=== PATIENT | male | born 1960 | race Asian ===

== ENCOUNTER 2019-05-18 09:04 | Observation (INO) | payer BC ==
--- NOTE | 2019-05-18 09:40 | ED Physician Documentation ---
PD HPI MALE - Stated complaint Stated Complaint: MALE - Chief complaint Chief Complaint: Abd Pain - History obtained from History obtained from: Patient - History of Present Illness Timing - onset: How many days ago Associated symptoms: Dysuria, Hematuria. No: Unable to urinate Similar symptoms before: Diagnosis Recently seen: Admitted - Additional information Additional information: This is a 58-year-old man who presents with his Daughter who acts as seismic interpreter. He is seeing a lot of blood in his urine. He was just at [facility] where they did a CAT scan and ultrasound showed a bladder tumor and he is scheduled for surgery on June 01 however he had lost so much blood that they admitted him to the hospital discharged 5 days ago and he received a transfusion. His hemoglobin at discharge was 8.5. He was also given a prescription for Keflex which he has been taking but he is developed some pain with urination. He has not seen any clots. He has ringing in the right ear just like when his blood was low before and he is been feeling his heart racing just like when he needed a transfusion before. He denies shortness of breath. Has no back pain no fevers. Review of Systems Constitutional: denies: Fever Ears: reports: Tinnitus/ringing Cardiac: reports: Palpitations. denies: Chest pain / pressure Respiratory: denies: Dyspnea GI: denies: Abdominal Pain, Nausea, Vomiting : reports: Dysuria, Hematuria Musculoskeletal: denies: Back pain Neurologic: denies: Near syncope, Syncope PD PAST MEDICAL HISTORY - Allergies Allergies/Adverse Reactions: Allergies Allergy/AdvReac Type Severity Reaction Status Date / Time No Known Drug Allergies Allergy Verified 05/18/19 09:15 PD ED PE NORMAL - Vitals Vital signs reviewed: Yes - General General: Alert and oriented X 3, No acute distress, Well developed/nourished, Other (Thin 58-year-old man who is in no acute distress.) - HEENT HEENT: Atraumatic, PERRL, Moist mucous membranes - Cardiac Cardiac: RRR, Strong equal pulses, Other (He has a soft 2/6 systolic murmur heard best at the apex.) - Respiratory Respiratory: No respiratory distress, Clear bilaterally - Abdomen Abdomen: Normal bowel sounds, Soft, Non tender, Non distended, No organomegaly - Derm Derm: Normal color, Warm and dry, No rash - Neuro Neuro: Alert and oriented X 3, No motor deficit, No sensory deficit, Normal speech Results - Vitals Vitals: Vital Signs - 24 hr 05/18/19 05/18/19 05/18/19 09:15 09:27 10:43 Temperature 36.5 C 36.9 C Heart Rate 69 71 71 Respiratory 14 18 16 Rate Blood Pressure 120/69 128/75 109/66 O2 Saturation 100 100 98 05/18/19 11:50 Temperature Heart Rate 66 Respiratory 18 Rate Blood Pressure 99/67 O2 Saturation 98 Oxygen O2 Source Room air - Labs Labs: Laboratory Tests 05/18/19 05/18/19 05/18/19 09:45 09:51 09:51 WBC 6.8 RBC 2.98 L Hgb 7.4 L Hct 24.2 L MCV 81.2 MCH 24.8 L MCHC 30.6 L RDW 18.5 H Plt Count 453 H MPV 9.0 Neut # (Auto) 4.2 Lymph # (Auto) 1.3 L [place] # (Auto) 0.7 Eos # (Auto) 0.5 Baso # (Auto) 0.1 Absolute Nucleated RBC 0.00 Nucleated RBC % 0.0 PT INR APTT Sodium 143 Potassium 3.8 Chloride 109 Carbon Dioxide 27 Anion Gap 7.0 BUN 15 Creatinine 0.9 Estimated GFR (MDRD) 86 L Glucose 132 H Calcium 8.2 L Total Bilirubin 0.7 AST 18 ALT 17 Alkaline Phosphatase 45 Total Protein 5.7 L Albumin 3.3 Globulin 2.4 Albumin/Globulin Ratio 1.4 Lipase 27 Urine Color RED/BLOODY Urine Clarity CLOUDY Urine pH 6.5 Ur Specific Malcolm 1.020 Urine Protein Urine Glucose (UA) NEGATIVE Urine Ketones TRACE Urine Occult Blood Urine Nitrite Urine Bilirubin NEGATIVE Urine Urobilinogen Ur Leukocyte Esterase Urine RBC TNTC H Urine WBC 11-25 H Ur Squamous Epith Cells RARE Squamous Urine Bacteria Few Ur Microscopic Review INDICATED Urine Culture Comments INDICATED Blood Type Blood Type Recheck Antibody Screen Crossmatch IS Only 05/18/19 05/18/19 05/18/19 09:51 09:51 09:51 WBC RBC Hgb Hct MCV MCH MCHC RDW Plt Count MPV Neut # (Auto) Lymph # (Auto) [place] # (Auto) Eos # (Auto) Baso # (Auto) Absolute Nucleated RBC Nucleated RBC % PT 11.7 INR 1.0 APTT 29.9 Sodium Potassium Chloride Carbon Dioxide Anion Gap BUN Creatinine Estimated GFR (MDRD) Glucose Calcium Total Bilirubin AST ALT Alkaline Phosphatase Total Protein Albumin Globulin Albumin/Globulin Ratio Lipase Urine Color Urine Clarity Urine pH Ur Specific Malcolm Urine Protein Urine Glucose (UA) Urine Ketones Urine Occult Blood Urine Nitrite Urine Bilirubin Urine Urobilinogen Ur Leukocyte Esterase Urine RBC Urine WBC Ur Squamous Epith Cells Urine Bacteria Ur Microscopic Review Urine Culture Comments Blood Type O POSITIVE Blood Type Recheck Antibody Screen NEGATIVE Crossmatch IS Only See Detail 05/18/19 10:55 WBC RBC Hgb Hct MCV MCH MCHC RDW Plt Count MPV Neut # (Auto) Lymph # (Auto) [place] # (Auto) Eos # (Auto) Baso # (Auto) Absolute Nucleated RBC Nucleated RBC % PT INR APTT Sodium Potassium Chloride Carbon Dioxide Anion Gap BUN Creatinine Estimated GFR (MDRD) Glucose Calcium Total Bilirubin AST ALT Alkaline Phosphatase Total Protein Albumin Globulin Albumin/Globulin Ratio Lipase Urine Color Urine Clarity Urine pH Ur Specific Malcolm Urine Protein Urine Glucose (UA) Urine Ketones Urine Occult Blood Urine Nitrite Urine Bilirubin Urine Urobilinogen Ur Leukocyte Esterase Urine RBC Urine WBC Ur Squamous Epith Cells Urine Bacteria Ur Microscopic Review Urine Culture Comments Blood Type Blood Type Recheck O POSITIVE Antibody Screen Crossmatch IS Only PD MEDICAL DECISION MAKING - ED course Complexity details: reviewed results, d/w patient, d/w family ED course: I did discuss the low hemoglobin and continued bleeding with the urologist to see if they would want him in transfer so that they can do any procedure to stop the bleeding. This is already his second time that he is needed a transfusion. The urologist said that they would not do anything emergently. They are going to try and rearrange his procedure and schedule it for an earlier date than June 01. I discussed with the hospitalist and he is going admit the patient for transfusion. Departure - Departure Disposition: ED Place in Observation Clinical Impression: Hematuria Qualifiers: Hematuria type: gross Qualified Code(s): R31.0 - Gross hematuria Anemia Qualifiers: Anemia type: other cause Other causes of anemia: acute posthemorrhagic Qualified Code(s): D62 - Acute posthemorrhagic anemia Condition: Good Discharge Date/Time: 05/18/19 13:58
[2019-05-18 09:59] LABS: BASOPHILS # (AUTO) 0.1 10^3/uL (0.0-0.1); BASOPHILS % (AUTO) 0.9 %; EOSINOPHILS # (AUTO) 0.5 10^3/uL (0.0-0.7); EOSINOPHILS % (AUTO) 6.9 %; HGB - HEMOGLOBIN 7.4 g/dL (14.0-18.0); LYMPHOCYTES # (AUTO) 1.3 10^3/uL (1.5-3.5); MEAN CORPUSCULAR HEMOGLOBIN 24.8 pg (27.0-31.0); MEAN CORPUSCULAR HGB CONC 30.6 g/dL (32.0-36.0); MEAN CORPUSCULAR VOLUME 81.2 fL (80.0-94.0); MONOCYTES # (AUTO) 0.7 10^3/uL (0.0-1.0); MONOCYTES % (AUTO) 10.5 %; NEUTROPHILS # (AUTO) 4.2 10^3/uL (1.5-6.6); NEUTROPHILS % (AUTO) 62.4 %; PLT - PLATELET COUNT 453 10^3/uL (130-450); RED BLOOD COUNT 2.98 10^6/uL (4.70-6.10); RED CELL DISTRIBUTION WIDTH 18.5 % (12.0-15.0); WHITE BLOOD COUNT 6.8 x10^3/uL (4.8-10.8)
[2019-05-18 10:04] LABS: BILIRUBIN,URINE NEGATIVE (NEGATIVE); GLUCOSE, URINE (UA) NEGATIVE (NEGATIVE); KETONES,URINE (UA) TRACE mg/dL (NEGATIVE); PH,URINE 6.5 PH (5.0-7.5)
[2019-05-18 10:05] LABS: CLARITY,URINE CLOUDY (CLEAR)
[2019-05-18 10:14] LABS: ALBUMIN 3.3 g/dL (3.2-5.5); ALBUMIN/GLOBULIN RATIO 1.4 (1.0-2.2); BILIRUBIN,TOTAL 0.7 mg/dL (0.2-1.0); CALCIUM 8.2 mg/dL (8.5-10.3); CREATININE 0.9 mg/dL (0.6-1.2); TOTAL PROTEIN 5.7 g/dL (6.7-8.2)
[2019-05-18 10:19] LABS: BACTERIA,URINE Few /HPF (None Seen); RBC,URINE TNTC /HPF (0-5); SQUAMOUS EPITHELIAL CELL,UR RARE Squamous (<= Few)
[2019-05-18] MEDS ORDERED: SODIUM CHLORIDE FLUSH 0.9% 10 ML SYRINGE IVP PRN (12:47)
[2019-05-18 12:52] LABS: PT - PROTHROMBIN TIME 11.7 secs (9.9-12.6)
--- NOTE | 2019-05-18 13:48 | HISTORY & PHYSICAL EXAMINATION ---
Chief Complaint - Chief Complaint Chief Complaint: anemia History of Present Illness - History Obtained From Exam Limitations: limited italian - History of Present Illness HPI Comment/Other: This is a 58-year-old male with a PMH significant for bladder cancer and hematuria, who present ER complain of hematuria. pt was discharged 5 days from [place], where he was found to have bladder cancer. pt was scheduled to have surgery on next Month Jun.01. pt has a limited [place] to speak. No family member is at his bedside. UA reveals bloody and red color with RBC and WBC cells. ER provider called Sergio, Per Dr. howard report, [place] provider state nothing they can do, pt was scheduled to have surgery on Jun.01, and ask us to have blood transfusion to pt, monitor pt overnight then d/c pt to home. Dr. Howard admitted pt and asked me to do HPI. ER provider ordered 2 units blood for pt. pt is on blood transfusion now. I called pt's daughter Ella at [phone]. she reported he had blood transfusion at [place] because significant hematuria. he had HGB 8.5 when he was d/c from [place]. Now he has 7.4 HGB. he feel palpitation as he had before when he need blood transfusion. she told me ER provider did call pt's urologist Dr. Vijay Mak. Dr. Mak will schedule as early as possible before Jun.01 to have surgery for pt. pt's daughter report pt's tumor in bladder occupy 80% space of bladder " it is a large tumor." pt's daughter told me she will warehouse picker her father on tomorrow morning after blood transfusion. pt's daughter request full code for his father. Pt is admitted on observation unit for above medical reason. History - Past Medical History Cardiovascular: reports: Hypertension Respiratory: reports: None Neuro: reports: None Endocrine/Autoimmune: reports: None GI: reports: None : reports: Other HEENT: reports: None Psych: reports: None Musculoskeletal: reports: None Derm: reports: None MRSA Hx?: No Other Past Medical History: bladder tumor - Family & Social History Family History Comment/Other: pt could not provide hx of his family Social History Notes: pt's daughter report pt has no hx of smoking, alcohol and drug abuse - POLST Patient has POLST: No Meds/Allgy - Allergies Allergies/Adverse Reactions: Allergies Allergy/AdvReac Type Severity Reaction Status Date / Time No Known Drug Allergies Allergy Verified 05/18/19 09:15 Review of Systems - Constitutional Constitutional: reports: Fatigue. denies: Fever, Chills - Eyes Eyes: denies: Pain, Blurred vision, Field loss, Vision loss - Ears, Nose & Throat Ears, Nose & Throat: denies: Ear pain, Vertigo, Nosebleeds, Bleeding gums - Cardiovascular Cariovascular: reports: Palpitations. denies: Irregular heart rate, Chest pain, Edema, Lightheadedness, Syncope, Exertional dyspnea, Decr. exercise tolerance - Respiratory Respiratory: denies: Cough, Sputum production, Wheezing, Hemoptysis, SOB at rest, SOB with exertion - Gastrointestinal Gastrointestinal: denies: Abdominal pain, Diarrhea, Rectal bleeding, Black stools, Bloody stools, Nausea, Vomiting - Genitourinary Genitourinary: reports: Hematuria. denies: Dysuria, Frequency, Urgency, Incontinence, Flank pain - Musculoskeletal Musculoskeletal: denies: Muscle pain - Integumentary Integumentary: denies: Rash - Neurological Neurological: denies: General weakness, Focal weakness, Headache, Numbness, Abnormal gait, Seizures, Incoordination, Slurred speech - Psychiatric Psychiatric: denies: Suicidal, Hallucinations, Homicidal - Endocrine Endocrine: denies: Polyuria - Hematologic/Lymphatic Hematologic/Lymphatic: reports: Anemia. denies: Blood clots, Recurrent infections Exam - Vital Signs Vital Signs: Vital Signs x48h Temp Pulse Resp BP Pulse Ox 05/18/19 11:50 66 18 99/67 98 05/18/19 10:43 71 16 109/66 98 05/18/19 09:27 36.9 C 71 18 128/75 100 05/18/19 09:15 36.5 C 69 14 120/69 100 - Physical Exam General Appearance: positive: No acute distress, Alert. negative: Lethargic Eyes Bilateral: positive: Normal inspection, PERRL, EOMI, No lid inflammation ENT: positive: ENT inspection nml, Pharynx nml, No signs of dehydration. negative: Purulent nasal drainage Neck: positive: Nml inspection, Thyroid nml, No JVD, Trachea midline. negative: Thyromegaly, Lymphadenopathy (R), Lymphadenopathy (L), Stiff neck, Tracheal deviation Respiratory: positive: Chest non-tender, No respiratory distress, Breath sounds nml. negative: Wheezes, Rales, Rhonchi Cardiovascular: positive: Regular rate & rhythm, No murmur, No gallop. negative: Irregularly irregular, Extrasystoles, Tachycardia, Bradycardia, JVD present, Systolic murmur, Diastolic murmur Peripheral Pulses: positive: 2+ Abdomen: positive: Non-tender, No organomegaly, Nml bowel sounds, No distention. negative: Tenderness, Guarding, Rebound Back: positive: Nml inspection. negative: CVA tenderness (R), CVA tenderness (L) Skin: positive: Color nml, No rash, Warm, Dry. negative: Cyanosis, Diaphoresis, Pallor, Skin rash Extremities: positive: Non-tender, Full ROM, Nml appearance. negative: Calf tenderness, Sabrina's sign/cords Neurologic/Psychiatric: positive: Oriented x3, Motor nml, Sensation nml. negative: Weakness, Sensory loss, Facial droop, Slurred/abnml speech, Depressed mood/affect Conclusion/Plan - Problem List (1) Anemia Conclusion/Plan: pt has hx of anemia. pt present hematuria, it is likely the cause of acute blood loss. pt has bladder cancer and scheduled to have surgery on Jun 01. transfusion of 2 unit of blood H&H monitor pt anemia study, will followup (2) Hematuria Conclusion/Plan: pt has hx of hematuria, persisting and likely from his bladder tumor. pt's urologist is contacted, will followup him after d/c pt continue finish blood transfusion and H&H monitor pt (3) Bladder tumor Conclusion/Plan: pt is schedule to have surgery to remove the tumor. Urologist was contacted today and try to move to the earliest as possible to have surgery for pt. (4) Full code status Conclusion/Plan: full code status, pt's daughter request - Lab Results Fish Bones: 05/18/19 09:51 05/18/19 09:51 Core Measures - Anticipated LOS I expect patient to be DC'd or transferred within 96 hours.: Yes - DVT/VTE - Prophylaxis VTE/DVT Device ordered at admit?: Yes VTE/DVT Prophylaxis med ordered at admit?: Yes
[2019-05-18] MEDS: SODIUM CHLORIDE FLUSH 0.9% 10 ML SYRINGE IVP SCH (16:49)
[2019-05-18 18:33] LABS: ABSOLUTE RETICS # AUTO 0.112 10^6/uL (0.020-0.110); RED BLOOD COUNT 2.92 10^6/uL (4.70-6.10)
[2019-05-18 18:59] LABS: % IRON SATURATION 4 % (20-50); IRON 17 ug/dL (45-182); TOTAL IRON BINDING CAPACITY 444 ug/dL (250-450); TRANSFERRIN 317 mg/dL (180-329)
[2019-05-18 19:10] LABS: FERRITIN 5.6 ng/mL (23.9-336.2)
[2019-05-18 23:12] LABS: HGB - HEMOGLOBIN 9.7 g/dL (14.0-18.0)
--- NOTE | 2019-05-19 01:18 | Ultrasound Report ---
Reason: hematuria Procedure Date: 05/18/2019 Accession Number: [id number] / [id number] Procedure: US - Retroperitoneal CPT Code: Final Report FULL RESULT: EXAM: RENAL ULTRASOUND EXAM DATE: 05/18/2019 11:59 PM CLINICAL HISTORY: Hematuria. COMPARISON: None. TECHNIQUE: Real-time scanning was performed with static images obtained. FINDINGS: Right Kidney: 10.0 x 4.9 x 4.5 cm. Minimal right hydronephrosis without stones or masses seen. Left Kidney: 10.1 x 4.3 x 4.3 cm. Normal echotexture with no stones, contour-deforming masses, or hydronephrosis. Probable column of Sunny present. Bladder: Large bladder mass, likely urothelial carcinoma with internal vascularity and some probable adjacent blood products. Subtle shadowing at the edge of the bladder is probably due to edge artifact. No definitive gas tracking within the wall of the bladder. Other: None. IMPRESSION: 1. Large urinary bladder mass, highly concerning for urothelial carcinoma. Urologic and possible CT IVP follow-up suggested. 2. Minimal right hydronephrosis, possibly due to some degree of ureteral obstruction from the bladder mass. RADIA
[2019-05-19] MEDS: SODIUM CHLORIDE FLUSH 0.9% 10 ML SYRINGE IVP SCH ×2 (02:06→08:48)
[2019-05-19 06:01] LABS: CALCIUM 8.4 mg/dL (8.5-10.3); CREATININE 0.8 mg/dL (0.6-1.2)
[2019-05-19 06:25] LABS: BASOPHILS # (AUTO) 0.1 10^3/uL (0.0-0.1); BASOPHILS % (AUTO) 1.1 %; EOSINOPHILS # (AUTO) 0.5 10^3/uL (0.0-0.7); EOSINOPHILS % (AUTO) 5.4 %; HGB - HEMOGLOBIN 10.1 g/dL (14.0-18.0); LYMPHOCYTES % (AUTO) 21.4 %; MEAN CORPUSCULAR HEMOGLOBIN 26.6 pg (27.0-31.0); MEAN CORPUSCULAR HGB CONC 32.8 g/dL (32.0-36.0); MEAN CORPUSCULAR VOLUME 81.1 fL (80.0-94.0); MEAN PLATELET VOLUME 8.8 fL (7.4-11.4); MONOCYTES # (AUTO) 0.9 10^3/uL (0.0-1.0); NEUTROPHILS # (AUTO) 5.7 10^3/uL (1.5-6.6); NEUTROPHILS % (AUTO) 61.3 %; PLT - PLATELET COUNT 462 10^3/uL (130-450); RED CELL DISTRIBUTION WIDTH 17.5 % (12.0-15.0); WHITE BLOOD COUNT 9.2 x10^3/uL (4.8-10.8)
[2019-05-19] MEDS ORDERED: FERROUS SULFATE 325 MG TABLET PO SCH (08:00)
--- NOTE | 2019-05-19 10:25 | Discharge Plan ---
Discharge Plan Problem Reviewed?: Yes Disposition: Home, Self Care Condition: Poor Prescriptions: Ferrous Sulfate 325 mg PO DAILY #30 tablet Diet: Regular Activity Restrictions: Activity as Tolerated Shower Restrictions: No (fall precaution) Instruction Topics: Iron tablets capsules extended-release tablets Health Concerns: anemia/hematuria, bladder tumor Plan of Treatment: you are scheduled to have surgery on tomorrow by your urologist. Please contact with your urologist office [facility]. you are prescribed iron pill for your anemia as well. You have PT/INR at 11.7/1.0, Your HGB is 10.1 now. Care Goals: stabilization and improvement of your medical condition. Assessment: discussed with the care plan with your daughter and you, she understood and agreed. Additional Instructions or Follow Up instructions: you may followup your urologist Dr. Vijay Mak on tomorrow to have surgery. Should your symptoms return or worsen, you may present ER or call 911 for help. No Smoking: If you smoke, Please STOP! Call for help.
[2019-05-19 10:29] VITALS: BP 131/77
--- NOTE | 2019-05-19 10:37 | DISCHARGE SUMMARY ---
Discharge Summary Admit Date: 05/18/19 Discharge Date: 05/19/19 Discharging Provider: Isra Solomon Condition at Discharge: Poor Discharge Disposition: Home, Self Care Discharge Facility Name: home - DIAGNOSES Admission Diagnoses: (1) Anemia (2) Hematuria (3) Bladder tumor Discharge Diagnoses with Status of Each Condition: (1)symptomatic Anemia stable. pt had two unit of blood transfused in hospital. his HGB is 10.1 after transfusion. pt has PT/INR at 12/. pt is hemodynamic stable now. (2) Hematuria pt continue to have hematuria for couple of months even before diagnosis of bladder tumor. pt was d/c from [place] with hematuria before. it is likely from his bladder tumor. pt was schedule to have surgery by his urologist on Jun.01. I called pt's urologist Dr. Vijay Mak, he state he will have surgery for pt on tomorrow 05/19/2019 on 9am. I tell the news to pt and pt's daughter, they are very happy for that, and urgent to be d/c from hospital and prepare for his surgery on tomorrow. (3) Bladder tumor pt has large tumor by US check at his bladder. I called pt's urologist Dr. Vijay Mak, he state he will have surgery for pt on tomorrow 05/19/2019 on 9am. I tell the news to pt and pt's daughter, they are very happy for that, and urgent to be d/c from hospital and prepare for his surgery on tomorrow. - HPI History of Present Illness: This is a 58-year-old male with a PMH significant for bladder cancer and hematuria, who present ER complain of hematuria. pt was discharged 5 days from [place], where he was found to have bladder cancer. pt was scheduled to have surgery on next Month Jun.01. pt has a limited [place] to speak. No family member is at his bedside. UA reveals bloody and red color with RBC and WBC cells. ER provider called [facility]ergio, Per Dr. howard report, [place] provider state nothing they can do, pt was scheduled to have surgery on Jun.01, and ask us to have blood transfusion to pt, monitor pt overnight then d/c pt to home. Dr. Howard admitted pt and asked me to do HPI. ER provider ordered 2 units blood for pt. pt is on blood transfusion now. I called pt's daughter Ella at [phone]. she reported he had blood transfusion at [place] because significant hematuria. he had HGB 8.5 when he was d/c from [place]. Now he has 7.4 HGB. he feel palpitation as he had before when he need blood transfusi on. she told me ER provider did call pt's urologist Dr. Vijay Mak. Dr. Mak will schedule as early as possible before Jun.01 to have surgery for pt. pt's daughter report pt's tumor in bladder occupy 80% space of bladder " it is a large tumor." pt's daughter told me she will grape picker her father on tomorrow morning after blood transfusion. pt's daughter request full code for his father. Pt is admitted on observation unit for above medical reason. - HOSPITAL COURSE Hospital Course: pt was admitted for symptomatic anemia. pt has hx of hematuria which was likely the cause from his bladder cancer. pt had two unit of blood transfusion. pt's HGB is 10.1 noiw from 7.4 at the admission. pt is hemodynamic stable now. I called pt's urologist Dr. Vijay Mak, he state he will have surgery for pt on tomorrow 05/19/2019 on 9am. I tell the news to pt and pt's daughter. the detail hospital course as the below. (1) symptomatic Anemia stable. pt had two unit of blood transfused in hospital. his HGB is 10.1 after transfusion. pt has PT/INR at 12/1. (2) Hematuria pt continue to have hematuria for couple of months even before diagnosis of bladder tumor. pt was d/c from [place] with hematuria before. it is likely from his bladder tumor. pt was schedule to have surgery by his urologist on Jun.01. I called pt's urologist Dr. Vijay Mak, he state he will have surgery for pt on tomorrow 05/19/2019 on 9am. I tell the news to pt and pt's daughter, they are very happy for that, and urgent to be d/c from hospital and prepare for his surgery on tomorrow. (3) Bladder tumor pt has large tumor by US check at his bladder. I called pt's urologist Dr. Vijay Mak, he state he will have surgery for pt on tomorrow 05/19/2019 on 9am. I tell the news to pt and pt's daughter, they are very happy for that, and urgent to be d/c from hospital and prepare for his surgery on tomorrow. - ALLERGIES Allergies/Adverse Reactions: Allergies Allergy/AdvReac Type Severity Reaction Status Date / Time No Known Drug Allergies Allergy Verified 05/18/19 09:15 - MEDICATIONS Home Medications: Ambulatory Orders Medication Instructions Recorded Confirmed Ferrous Sulfate 325 mg PO DAILY #30 tablet 05/19/19 - PHYSICAL EXAM AT DISCHARGE General Appearance: positive: No acute distress, Alert. negative: Lethargic Eyes Bilateral: positive: Normal inspection, PERRL, EOMI. negative: No lid inflammation ENT: positive: ENT inspection nml, Pharynx nml, No signs of dehydration. negative: Purulent nasal drainage Neck: positive: Nml inspection, Thyroid nml, No JVD, Trachea midline. negative: Thyromegaly, Lymphadenopathy (R), Lymphadenopathy (L), Stiff neck, Tracheal deviation Respiratory: positive: Chest non-tender, No respiratory distress, Breath sounds nml. negative: Wheezes, Rales, Rhonchi Cardiovascular: positive: Regular rate & rhythm, No murmur, No gallop. negative: Irregularly irregular, Extrasystoles, Tachycardia, Bradycardia, JVD present, Systolic murmur, Diastolic murmur Peripheral Pulses: positive: 2+ Abdomen: positive: Non-tender, No organomegaly, Nml bowel sounds, No distention. negative: Tenderness, Guarding, Rebound Back: positive: Nml inspection. negative: CVA tenderness (R), CVA tenderness (L) Skin: positive: Color nml, No rash, Warm, Dry. negative: Cyanosis, Diaphoresis, Pallor Extremities: positive: Non-tender, Full ROM, Nml appearance. negative: Calf tenderness, Sabrina's sign/cords Neurologic/Psychiatric: positive: Oriented x3, Motor nml, Sensation nml, Mood/affect nml. negative: Weakness, Sensory loss, Facial droop, Slurred/abnml speech, Depressed mood/affect - LABS Result Diagrams: 05/19/19 06:16 05/19/19 05:45 - FOLLOW UP Follow Up: you are scheduled to have surgery on tomorrow by your urologist. Please contact with your urologist office [facility]. you are prescribed iron pill for your anemia as well. You have PT/INR at 11.7/1.0, Your HGB is 10.1 now. you may followup your urologist Dr. Vijay Mak on tomorrow to have surgery. Should your symptoms return or worsen, you may present ER or call 911 for help. - TIME SPENT Time Spent in Discharge (Minutes): 40
== END 2019-05-19 10:55 | disposition home or self-care (01) ==
LOC: ED 09:04 → EEVIPCON 12:47 → MS2 12:47
PROVIDERS: ADMIT Internal Medicine; ATTEND Nurse Practitioner Gerontology
DX: D62 Acute posthemorrhagic anemia (principal); R31.9 Hematuria, unspecified; C67.9 Malignant neoplasm of bladder, unspecified; I10 Essential (primary) hypertension
CPT/HCPCS: 36415; 36430; 76770; 80048; 80053; 81001; 82607; 82728; 83540; 83615; 83690; 84466; 85014; 85018; 85025; 85045; 85610; 85730; 86850; 86900; 86901; 86920; 87086; 99284; 99285; A9270; G0378; P9016; 81003